=== PATIENT | female | born 1950 | race Caucasian/White ===

== ENCOUNTER 2016-05-12 13:06 | Emergency (ER) | payer MEDICARE, OTHER ==
[~2016-05-12] VITALS: Ht 165.1 cm; Wt 51.0 kg
[~2016-05-12 13:06] MED LIST: HYDR-3498 PO; IBUP-1542 PO; LETR2.5T PO; LORA-441 PO; OMEP40CA6 PO
[2016-05-12 13:19] VITALS: Ht 165.1 cm; Wt 51.0 kg
[2016-05-12] MEDS ORDERED: LORA-441 PO (17:31)
--- NOTE | 2016-05-12 17:40 | ERD ---
ER Documentation Chief Complaint Date/Time DATE: 05/12/16 TIME: 17:34 Chief Complaint pt taking anti-anxiety meds but meds making her feel worse HPI This is a 66-year-old female who presents to the emergency department today with her sister for "feeling bad". Patient states that she recently was started 2 weeks ago on Sertraline for depression and she took it 2 times and started not feeling well after it. She continue taking it and still felt bad. States that she feels more sad and more depressed and she went to her primary care doctor 4 days ago but he did not make any medication changes at that time. States that she has a history of breast cancer with mastectomy in her right breast and they have recently found a lump in her left breast and she is very anxious and worried about that. Denies any fevers or chills, night sweats,, nausea or vomiting, suicidal or homicidal ideation. ROS All systems reviewed and are negative except as per history of present illness. Medications Home Meds Active Scripts Lorazepam* (Ativan*) 0.5 Mg Tablet, 0.5 MG PO Q8, #10 TAB Prov:TETE VILLASENOR PA-C 05/12/16 Hydrocodone Bit-Acetaminophen* (Mobile*) 5-325 Mg Tab, 1 TAB PO Q6 Y for PAIN for 4 Days, TAB Prov:SIMONE MALCOLM MD 11/11/14 Ibuprofen* (Motrin*) 600 Mg Tab, 600 MG PO Q6, #30 TAB Prov:SIMONE MALCOLM MD 11/11/14 Lorazepam* (Ativan*) 0.5 Mg Tablet, 0.5 MG PO Q8 for 7 Days Prov:SIMONE MALCOLM MD 11/11/14 Reported Medications Omeprazole* (Omeprazole*) 40 Mg Capsule.dr, 40 MG PO DAILY, CAP 11/11/14 Letrozole* (Letrozole*) 2.5 Mg Tablet, 2.5 MG PO DAILY, TAB 11/11/14 Allergies Allergies: Coded Allergies: Acetaminophen (Verified Allergy, DONT'T REMEMBER, 12/02/11) Sulfa(Sulfonamide Antibiotics) (Verified Allergy, DONT'T REMEMBER, 12/02/11 ) ciprofloxacin (Verified Allergy, DONT'T REMEMBER, 12/02/11) ciprofloxacin HCl (Verified Allergy, DONT'T REMEMBER, 12/02/11) hydrocodone bit (Verified Allergy, DONT'T REMEMBER, 12/02/11) PMhx/Soc History of Surgery: Yes (RIGHT BREAST MASTECTOMY FOR CA) Anesthesia Reaction: No Hx Neurological Disorder: No Hx Respiratory Disorders: No Hx Cardiac Disorders: No Hx Psychiatric Problems: No Hx Alcohol Use: No Hx Substance Use: No Hx Tobacco Use: No Physical Exam Vitals Vital Signs Date Time Temp Pulse Resp B/P Pulse Ox O2 Delivery O2 Flow Rate FiO2 05/12/16 13:19 98.2 75 18 131/62 98 Physical Exam Const: No acute distress Head: Atraumatic Eyes: Normal Conjunctiva ENT: Normal External Ears, Nose and Mouth. Neck: Full range of motion..~ No meningismus. Resp: Clear to auscultation bilaterally Cardio: Regular rate and rhythm, no murmurs Skin: No petechiae or rashes Neur: Awake and alert Psych: Normal Mood and Affect Procedures/MDM This is 66-year-old female who presents to the emergency department today for "feeling bad" after starting antidepressant medication. Patient states that she feels down however she denies any suicidal or homicidal ideations. States that she is waiting for a biopsy of her left breast and she is very anxious about that as she is ready had breast cancer in her right breast. Patient is afebrile and otherwise well-appearing here in the emergency department. Patient symptoms at this time is consistent with anxiety. Patient does appear to have family support and support through her evangelical. I have encouraged her to keep involved with that. I did explain to the patient that I did not feel comfortable changing her antidepressant medication here in the emergency department. I have explained to her that it can oftentimes take 2 weeks for these medications to take effect and yester may be some negative side effects from it and if it was unable to be tolerated that she should follow-up with her primary care physician to change that medication. Patient understood. Patient was given a prescription for a very low dose of Lorazepam. Patient states that she has taken in the past but has not taken any for quite some time. Do not feel this patient is a risk to herself and others and I feel that she is stable for discharge and outpatient management. At this time the patient is stable for discharge and outpatient management. Patient should follow up with their PCP in the next 1-2 days. They may return to the emergency department sooner for any persistent or worsening of symptoms. Patient understood and agreed with the plan. Departure Diagnosis: Primary Impression: Anxiety Condition: Fair Patient Instructions: Your Body's Response to Anxiety Additional Instructions: Llame al doctor MAANA y aurora cesar MAGNUS PARA DENTRO DE 1-2 GARAY.Dgale a la secretaria que nosotros le instruimos hacer esta magnus.Avise o llame si steward condicin se empeora antes de la magnus. Regresa aqui si peor o no mejor. Take medication as prescribed for anxiety Follow-up with your primary care doctor about your depression medication TETE VILLASENOR PA-C May 12, 2016 17:40
[2016-05-12 17:45] VITALS: BP 118/71; PULSE 77; RESP 18
== END 2016-05-12 17:46 | disposition home or self-care (01) ==
LOC: FTE 13:06
DX: F41.9 Anxiety disorder, unspecified (principal); Z85.3 Personal history of malignant neoplasm of breast
CPT/HCPCS: 99283

== ENCOUNTER 2018-03-16 05:44 | Day surgery (SDC) | payer MEDICARE, OTHER ==
[~2018-03-16] VITALS: Ht 165.1 cm; Wt 51.3 kg
[2018-03-16 06:39] VITALS: Ht 165.1 cm; Wt 51.3 kg
[2018-03-16] MEDS ORDERED: RANI150T5 PO (06:46)
[2018-03-16 07:24] VITALS: BP 150/68; PULSE 64; RESP 18
[2018-03-16 08:24] VITALS: BP 120/57; PULSE 70; RESP 14
[2018-03-16] MEDS ORDERED: MIDAZOLAM 1 MG/ML 2 ML INJ ONE (08:44)
[2018-03-16] MEDS ORDERED: FENTAnyl 50 MCG/ML VIAL ONE (08:45)
--- NOTE | 2018-03-18 14:08 | CONS ---
DATE OF ADMISSION: 03/16/2018 DATE OF CONSULTATION: PATIENT NAME: KAREN COUCH TYPE OF CONSULTATION: Preoperative gastroenterology. Dear Dr. Lorenz and Dr. Fletcher: I thank you very much for this kind referral. Ms. Karen Putnam is a 68-year-old female patie nt who has been referred to me for further evaluation of abdominal pain. The patient states she has upper and lower abdominal pain and she has been taking Zantac with partial relief. The patient has h istory of gastritis. Not on nonsteroidal anti-inflammatory agents. She states her appetite has been poor and she has been losing weight. No history of gallstones or liver disease. The patient is kno wn to have diverticulosis of the colon. The patient got screening colonoscopy 3 years ago and no col on neoplasm was identified. She denies any change in the bowel habit or rectal bleeding. She is not a hypertensive or diabetic. No heart disease, lung problem or kidney disease. She has history of b reast cancer for which she has undergone surgery, radiation and chemotherapy. SOCIAL HISTORY: Nonsmoker. No alcohol abuse. FAMILY HISTORY: No family history of gastrointestinal tract neoplasm. ALLERGIES: SHE STATES SHE IS ALLERGIC TO: 1. VICODIN. 2. CIPRO. 3. BACTRIM. PHYSICAL EXAMINATION: VITAL SIGNS: She is 5 feet, 5 inches tall and weighs 110 pounds, BMI 19, blood pressure 124/72. HEART: Normal heart sounds. LUNGS: Clear. ABDOMEN: Soft. No masses. Normal bowel sounds. NEUROLOGIC: Normal. IMPRESSION: 1. Upper abdominal pain, not responding to therapy with Zantac. 2. The patient also complains of loss of appetite and weight loss. 3. The patient had a screening colonoscopy 3 years ago and she was noted to have diverticulosis of t he colon and no colon neoplasm was identified. 4. The patient states she had an abdominal ultrasound done and it was normal. 4. Status post surgery, radiation and chemotherapy for breast cancer. 5. HISTORY OF ALLERGY TO VICODIN, CIPRO AND BACTRIM. PLAN: Endoscopic examination for further evaluation. The procedure and possible complications are well explained to the patient. She understands and cons ents to the procedure. I thank you once again. With warmest personal regards, Dictated By: JUAN CABRERA/VANE Conf#: [id number] [facility]#: [id number] CC: Dr. Lorenz; JAKE FLETCHER MD;*End*
== END 2018-03-16 12:32 | disposition home or self-care (01) ==
LOC: GIL 05:44
PROVIDERS: ATTEND Internal Medicine Gastroenterology
DX: K44.9 Diaphragmatic hernia without obstruction or gangrene (principal); K21.9 Gastro-esophageal reflux disease without esophagitis; K29.60 Other gastritis without bleeding
CPT/HCPCS: 43239; 88305; J2250; J3010